=== PATIENT | male | born 1985 | race Caucasian/White ===

== ENCOUNTER 2017-09-27 06:21 | Emergency (ER) | payer OTHER ==
[2017-09-27 07:17] LABS: INFLUENZA A PATIENT NEGATIVE (NEGATIVE); INFLUENZA B PATIENT NEGATIVE (NEGATIVE); OBC FLU VALID
[2017-09-27 12:29] LABS: NEGATIVE OBC STREP NEG; POSITIVE OBC STREP POS
== END 2017-09-27 08:34 | disposition home or self-care (01) ==
LOC: ER 06:21
DX: B34.9 Viral infection, unspecified (principal)
CPT/HCPCS: 71046; 87070; 87804; 87804-59; 87880; 99285

== ENCOUNTER → 2017-10-22 | Outpatient (CLI) | payer OTHER ==
[2017-10-22 10:23] LABS: ADD MAN DIFF? NO
[2017-10-22 10:30] LABS: BASO % 1 % (0-3); EOS # 0.1 x10^3/uL (0.0-0.7); EOS % 1 % (0-3); HEMATOCRIT 43.2 % (39.0-53.0); HEMOGLOBIN 14.6 g/dL (13.0-17.5); LYMPH # 2.1 x10^3/uL (1.0-4.8); LYMPH % 47 % (24-48); MEAN CORPUSCULAR HEMOGLOBIN 30 pg (25-35); MEAN CORPUSCULAR HGB CONC 34 g/dL (31-37); MEAN CORPUSCULAR VOLUME 90 fL (79-100); MONO # 0.4 x10^3/uL (0.0-1.1); MONO % 10 % (0-9); NEUT # 1.8 x10^3uL (1.8-7.7); NEUT % 41 % (31-73); PLATELET COUNT 225 x10^3/uL (140-400); RED CELL DISTRIBUTION WIDTH 12.8 % (11.5-14.5); WHITE BLOOD COUNT 4.4 x10^3/uL (4.0-11.0)
[2017-10-22 10:50] LABS: ALBUMIN 4.4 g/dL (3.4-5.0); ALBUMIN/GLOBULIN RATIO 1.1 (1.0-1.7); ALK PHOS 74 U/L (46-116); ALT (SGPT) 39 U/L (16-63); ANION GAP 5 (6-14); AST (SGOT) 27 U/L (15-37); BLOOD UREA NITROGEN 20 mg/dL (8-26); BUN/CREATININE RATIO 17 (6-20); CALCIUM 9.8 mg/dL (8.5-10.1); CARBON DIOXIDE 32 mmol/L (21-32); CHLORIDE 104 mmol/L (98-107); CREATININE 1.2 mg/dL (0.7-1.3); GFR 69.7; GLUCOSE 94 mg/dL (70-99); SODIUM 141 mmol/L (136-145); TOTAL BILIRUBIN 0.6 mg/dL (0.2-1.0); TOTAL PROTEIN 8.3 g/dL (6.4-8.2)
[2017-10-22 11:00] LABS: THYROID STIM HORMONE (TSH) 0.935 uIU/mL (0.358-3.74)
[2017-10-22 17:13] LABS: TESTOSTERONE TOTAL 368 ng/dL (264-916)
== END | disposition home or self-care (01) ==
LOC: LAB 10:10
DX: R53.82 Chronic fatigue, unspecified (principal)
CPT/HCPCS: 36415; 80053; 84403; 84443; 85025

== ENCOUNTER 2017-11-21 17:36 | Emergency (ER) | payer OTHER ==
[2017-11-21] MEDS: KETOROLAC 60 MG/2 ML INJ. IM (18:28)
== END 2017-11-21 18:52 | disposition home or self-care (01) ==
LOC: ER 17:36
DX: R07.89 Other chest pain (principal)
CPT/HCPCS: 71101; 96372; 99284-25; J1885

== ENCOUNTER → 2017-12-08 | Outpatient (CLI) | payer OTHER | END | disposition home or self-care (01) | LOC: MRI 09:22 | DX: M51.16 Intervertebral disc disorders with radiculopathy, lumbar region (principal) | CPT/HCPCS: 72148 ==